=== PATIENT | female | born 1985 | race Caucasian/White ===

== ENCOUNTER 2016-05-16 17:23 | Emergency (ER) ==
[2016-05-16 17:58] LABS: URINE SOURCE CLEAN CATCH
--- NOTE | 2016-05-16 18:02 | PROVIDER DOCUMENTATION ---
HPI-Abdominal Pain/GI Problem - General Source: patient - History of Present Illness-ABD Nature of Presenting Problems: 30 y/o F presents to the ED with RUQ pain X 1 month. Pt says she ran out of her pain meds at lunch and called her Dr and was sent to the ED for evaluation. Pt states she has gallbladder problems and had a work up for it. Abdominal Pain Onset Location: reports: RUQ Pain Radiation: reports: no radiation Quality of Pain: reports: aching Severity in ED: reports: moderate Onset/Duration: reports: other (1 month) Timing: reports: still present, intermittent Modifying Factors: improves with: nothing <Naeem Boggs - Last Filed: 05/16/16 17:59> <Leslie Baird - Last Filed: 05/16/16 20:04> - General Chief Complaint: Abdominal Pain Stated Complaint: ABD PAIN Time Seen by Provider: 05/16/16 17:32 Allergies/Adverse Reactions: Patient Allergies Allergy/AdvReac Type Severity Reaction Status Date / Time promethazine HCl * Allergy HIVES Verified 05/16/16 17:29 [From Phenergan] Home Medications: Home Medication List Medication Instructions Recorded Confirmed Last Taken Type Acetaminophen/Diphenhydramine 1 each PO TID #20 tablet 05/16/16 Unknown Rx [Percogesic Extra Str Caplet] Ondansetron [Zofran] 4 mg PO Q6H PRN PRN #15 tablet 05/16/16 Unknown Rx Review of Systems - Adult - REVIEW OF SYSTEMS - ADULT Constitutional: denies: chills, fever Eyes: reports: no symptoms reported Ears, Nose, Mouth & Throat: reports: no symptoms reported Cardiovascular: reports: no symptoms reported Respiratory: reports: no symptoms reported Gastrointestinal: reports: abdominal pain. denies: constipation, diarrhea, nausea, vomiting Genitourinary: reports: no symptoms reported Musculoskeletal: reports: no symptoms reported Integumentary: reports: no symptoms reported Neurological: reports: no symptoms reported Psychiatric: reports: no symptoms reported Endocrine: reports: no symptoms reported Hematologic/Lymphatic: reports: no symptoms reported Allergic/Immunologic: reports: no symptoms reported All Other Systems: Reviewed and Negative <Naeem Boggs - Last Filed: 05/16/16 17:59> - REVIEW OF SYSTEMS - ADULT Constitutional: denies: see HPI, fever Gastrointestinal: reports: nausea <BrieLeslie Gloria - Last Filed: 05/16/16 20:04> Past History - Adult - PAST MEDICAL HISTORY-ADULT Review of Records: reports: Old Records Reviewed, Nursing Assessment Review, Medications Reviewed Major Childhood Illnesses: reports: denies history Cardiovascular: reports: denies history Respiratory: reports: denies history Gastrointestinal: reports: GERD Genitourinary: reports: denies history, chronic UTI's. denies: kidney stones Musculoskeletal: reports: chronic pain (back) Neurological: reports: denies history Psychiatric: reports: denies history Endocrine/Immune: reports: denies history Other Conditions: reports: denies history - PRIOR SURGERIES/PROCEDURES Surgical/Procedure History: reports: appendectomy, BTL, tonsillectomy - PRIOR HOSPITALIZATIONS Prior Hospitalizations: reports: none - IMMUNIZATION STATUS Childhood Immunizations: See Nurse Assessment Flu Vaccine: See Nurse Assessment - FAMILY HISTORY Family History: CAD over 55 yo (mother 58) <Naeem Boggs - Last Filed: 05/16/16 17:59> - PAST MEDICAL HISTORY-ADULT Review of Records: reports: Nursing Assessment Review, Medications Reviewed - IMMUNIZATION STATUS Childhood Immunizations: See Nurse Assessment Flu Vaccine: See Nurse Assessment - SOCIAL HISTORY Smoking: denies <Delano Bairdqueline Gloria - Last Filed: 05/16/16 20:04> Physical Exam-General - PHYSICAL EXAM-ADULT Initial Vital Signs Reviewed: Yes - CONSTITUTIONAL General Appearance: appears well, alert - EYES Eyes: PERRL/EOMI, pink conjunctivae - HEAD, EARS, NOSE, MOUTH & THROAT HENMT: normocephalic/atraumatic, moist mucous membranes, normal ENT inspection, TMs normal, pharynx normal, dental decay - NECK Neck: non-tender, full range of motion, supple - CARDIOVASCULAR Cardiovascular: normal peripheral pulses, regular rate, rhythm - GASTROINTESTINAL (ABDOMEN) Abdominal Exam: normal bowel sounds, tenderness (right upper quandrant). negative: guarding - MUSCULOSKELETAL Extremity: normal range of motion, normal capillary refill - SKIN Integumentary: normal color, normal turgor, warm/dry - PSYCHIATRIC Psych/Mental Status: normal mood/affect, oriented x 3 <Leslie Baird Gloria - Last Filed: 05/16/16 20:04> Progress - PLAN OF CARE/RESULTS Progress/Plan/Lab Results: Discussed care, diagnosis and need for follow-up, patient verbalized understanding Laboratory Tests 05/16/16 05/16/16 05/16/16 13:10 17:32 17:32 WBC RBC Hgb Hct MCV MCH MCHC RDW Std Deviation Plt Count MPV Immature Gran % (Auto) Neut % (Auto) Lymph % (Auto) [place] % (Auto) Eos % (Auto) Baso % (Auto) Immature Gran # (Auto) Neut # (Auto) Lymph # (Auto) [place] # (Auto) Eos # (Auto) Baso # (Auto) Sodium 131 L Potassium 4.3 Chloride 95 L Carbon Dioxide 24 L Anion Gap 12 BUN 15 Creatinine 0.7 Estimated GFR/1.73 m2 > 60 BUN/Creatinine Ratio 21 Glucose 103 Calculated Osmolality 264 Calcium 9.7 Total Bilirubin 0.20 AST 59 H ALT 74 H Alkaline Phosphatase 182 H Total Protein 7.4 Albumin 4.2 Globulin 3.0 Albumin/Globulin Ratio 1.0 Amylase Lipase Urine Source CLEAN CATCH Urine Color YELLOW Urine Clarity CLEAR Urine pH 7.0 Ur Specific [place] 1.005 Urine Protein NEGATIVE Urine Ketones NEGATIVE Urine Blood NEGATIVE Urine Nitrite NEGATIVE Urine Bilirubin NEGATIVE Urine Urobilinogen NORMAL Urine Microscopic RBC Not Reportable Urine WBC TRACE A Urine Microscopic WBC <10 Ur Epithelial Cells <10 Urine Glucose NEGATIVE Urine Test NEGATIVE 05/16/16 05/16/16 05/16/16 18:00 18:10 18:10 WBC 6.49 RBC 4.67 Hgb 13.0 Hct 38.0 MCV 81.4 MCH 27.8 MCHC 34.2 RDW Std Deviation 13.2 Plt Count 291 MPV 10.0 Immature Gran % (Auto) 0.2 Neut % (Auto) 59.0 Lymph % (Auto) 28.2 [place] % (Auto) 10.3 H Eos % (Auto) 1.8 Baso % (Auto) 0.5 Immature Gran # (Auto) 0.01 Neut # (Auto) 3.83 Lymph # (Auto) 1.83 [place] # (Auto) 0.67 H Eos # (Auto) 0.12 Baso # (Auto) 0.03 Sodium Potassium Chloride Carbon Dioxide Anion Gap BUN Creatinine Estimated GFR/1.73 m2 BUN/Creatinine Ratio Glucose Calculated Osmolality Calcium Total Bilirubin AST ALT Alkaline Phosphatase Total Protein Albumin Globulin Albumin/Globulin Ratio Amylase 37 Lipase 40 Urine Source Urine Color Urine Clarity Urine pH Ur Specific [place] Urine Protein Urine Ketones Urine Blood Urine Nitrite Urine Bilirubin Urine Urobilinogen Urine Microscopic RBC Urine WBC Urine Microscopic WBC Ur Epithelial Cells Urine Glucose Urine Test Orders Category Date Time Status CT ABD/PELVIS W/ IV CONT ONLY [CT] Stat Exams 05/16/16 17:54 Taken AMYLASE [CHEM] Stat Lab 05/16/16 18:00 Completed CBC WITH DIFF [HEME] Stat Lab 05/16/16 18:10 Completed CMP [COMPREHENSIVE METABOLIC PANEL] [CHEM] Stat Lab 05/16/16 13:10 Completed LIPASE [CHEM] Stat Lab 05/16/16 18:10 Completed TEST-URINE [PREG] Stat Lab 05/16/16 17:32 Completed UA [URINALYSIS PL] [URINALYSIS] Stat Lab 05/16/16 17:32 Completed URINE MICROSCOPIC [URINALYSIS] Stat Lab 05/16/16 17:32 Completed Last Vital Signs Temp 97.1 F L 05/16/16 17:27 Pulse 95 H 05/16/16 17:27 Resp 18 05/16/16 17:27 BP 119/72 05/16/16 17:27 Pulse Ox 99 05/16/16 17:27 Allergies promethazine HCl * [From Phenergan] Allergy (Verified 05/16/16 17:29) HIVES Orders 05/16/16 17:54 CT ABD/PELVIS W/ IV CONT ONLY [CT] Stat Lab Tests 05/16/16 05/16/16 05/16/16 13:10 17:32 17:32 WBC RBC Hgb Hct MCV MCH MCHC RDW Std Deviation Plt Count MPV Immature Gran % (Auto) Neut % (Auto) Lymph % (Auto) [place] % (Auto) Eos % (Auto) Baso % (Auto) Immature Gran # (Auto) Neut # (Auto) Lymph # (Auto) [place] # (Auto) Eos # (Auto) Baso # (Auto) Sodium 131 L Potassium 4.3 Chloride 95 L Carbon Dioxide 24 L Anion Gap 12 BUN 15 Creatinine 0.7 Estimated GFR/1.73 m2 > 60 BUN/Creatinine Ratio 21 Glucose 103 Calculated Osmolality 264 Calcium 9.7 Total Bilirubin 0.20 AST 59 H ALT 74 H Alkaline Phosphatase 182 H Total Protein 7.4 Albumin 4.2 Globulin 3.0 Albumin/Globulin Ratio 1.0 Amylase Lipase Urine Source CLEAN CATCH Urine Color YELLOW Urine Clarity CLEAR Urine pH 7.0 Ur Specific [place] 1.005 Urine Protein NEGATIVE Urine Ketones NEGATIVE Urine Blood NEGATIVE Urine Nitrite NEGATIVE Urine Bilirubin NEGATIVE Urine Urobilinogen NORMAL Urine Microscopic RBC Not Reportable Urine WBC TRACE A Urine Microscopic WBC <10 Ur Epithelial Cells <10 Urine Glucose NEGATIVE Urine Test NEGATIVE 05/16/16 05/16/16 05/16/16 18:00 18:10 18:10 WBC 6.49 RBC 4.67 Hgb 13.0 Hct 38.0 MCV 81.4 MCH 27.8 MCHC 34.2 RDW Std Deviation 13.2 Plt Count 291 MPV 10.0 Immature Gran % (Auto) 0.2 Neut % (Auto) 59.0 Lymph % (Auto) 28.2 [place] % (Auto) 10.3 H Eos % (Auto) 1.8 Baso % (Auto) 0.5 Immature Gran # (Auto) 0.01 Neut # (Auto) 3.83 Lymph # (Auto) 1.83 [place] # (Auto) 0.67 H Eos # (Auto) 0.12 Baso # (Auto) 0.03 Sodium Potassium Chloride Carbon Dioxide Anion Gap BUN Creatinine Estimated GFR/1.73 m2 BUN/Creatinine Ratio Glucose Calculated Osmolality Calcium Total Bilirubin AST ALT Alkaline Phosphatase Total Protein Albumin Globulin Albumin/Globulin Ratio Amylase 37 Lipase 40 Urine Source Urine Color Urine Clarity Urine pH Ur Specific [place] Urine Protein Urine Ketones Urine Blood Urine Nitrite Urine Bilirubin Urine Urobilinogen Urine Microscopic RBC Urine WBC Urine Microscopic WBC Ur Epithelial Cells Urine Glucose Urine Test Vital Signs - 24 hr 05/16/16 17:27 Temperature 97.1 F L Pulse Rate 95 H Respiratory 18 Rate Blood Pressure 119/72 O2 Sat by Pulse 99 Oximetry - CT/MRI 1 CT Study: Abdomen Impression: Abnormal CT Results: constipation, right ovarian cyst <Leslie Baird - Last Filed: 05/16/16 20:04> Departure <Naeem Boggs - Last Filed: 05/16/16 17:59> - Departure Time of Disposition Order: 19:55 Certified Medical Emergency: Emergent <Leslie Baird - Last Filed: 05/16/16 20:04> - Departure DIAGNOSIS: Right upper quadrant abdominal pain, Right ovarian cyst Constipation Qualifiers: Constipation type: unspecified constipation type Qualified Code(s): K59.00 - Constipation, unspecified Disposition: HOME 01 Condition: Stable Additional Instructions: ED Follow Up Instructions: You have been treated by a care provider in the Emergency Department. These instructions are being provided to you so you can have an understanding of how to care for yourself upon discharge. Upon discharge from the Emergency Department, you are responsible for making arrangements for follow-up care by a physician of your choice. Take all prescribed medications as directed. Return to the Emergency Department immediately for any new or worsening symptoms. You may call the Physician Referral phone number at [phone] to obtain a list of Physicians who are taking new patients. Prescriptions: Acetaminophen/Diphenhydramine [Percogesic Extra Str Caplet] 1 each PO TID #20 tablet Ondansetron [Zofran] 4 mg PO Q6H PRN PRN #15 tablet PRN Reason: Pain Referrals: Javed Jones MD [Primary Care Provider] - Attestation - Scribe Verification/Attestation Scribe:: Naeem Boggs Acting as Scribe for:: Leslie Baird Scribe documention review:: This chart was documented by a scribe and accurately reflects the service the provider performed and the decisions made by the provider. <Naeem Boggs - Last Filed: 05/16/16 17:59> Physician Attestation
[2016-05-16 18:19] LABS: MANUAL DIFF NEEDED? NO
[2016-05-16 18:19] LABS: BILIRUBIN URINE NEGATIVE (NEGATIVE); BLOOD URINE NEGATIVE (NEGATIVE); CLARITY CLEAR (CLEAR); COLOR YELLOW; GLUCOSE URINE NEGATIVE (NEGATIVE); LEUKOCYTES URINE TRACE (NEGATIVE); NITRITE URINE NEGATIVE (NEGATIVE); PROTEIN URINE NEGATIVE (NEGATIVE); SP GRAVITY URINE 1.005; URINE EPITHELIAL CELLS <10 /HPF (<10); URINE MICROSCOPIC NEEDED? YES; URINE WBC <10 /HPF (<10); UROBILINOGEN URINE NORMAL
[2016-05-16 18:26] LABS: BASO% 0.5 % (0.0-0.8); EOS# 0.12 X1000 (0.0-0.7); EOS% 1.8 % (0.0-10.0); IMM GRAN# 0.01 X1000 (0.0-0.04); IMM GRAN% 0.2 % (0.0-0.5); LYMPH# 1.83 X1000 (1.2-3.4); LYMPH% 28.2 % (20.5-51.1); MCH 27.8 PG (27-31); MCHC 34.2 g/dL (33-37); MCV 81.4 FL (81-99); MONO# 0.67 X1000 (0.11-0.59); MONO% 10.3 % (1.7-9.3); PLT 291 X1000 (130-400); RBC 4.67 XMIL (4.2-5.4)
[2016-05-16 18:50] LABS: AGAP 12; ALBUMIN 4.2 g/dL (3.5-5.0); ALKALINE PHOSPHATASE 182 U/L (32-104); BUN 15 mg/dL (8-22); CALCIUM 9.7 mg/dL (8.8-10.2); CHLORIDE 95 mmol/L (98-107); COSMO 264; GOT 59 U/L (10-30); GPT 74 U/L (10-36); POTASSIUM 4.3 mmol/L (3.5-5.1); SODIUM 131 mmol/L (136-145); TCO2 24 mmol/L (25-35); TOTAL PROTEIN 7.4 g/dL (6.3-8.3)
[2016-05-16] MEDS ORDERED: TORADOL IV STA (20:07)
--- NOTE | 2016-05-16 20:07 | Diag Imaging Result Document ---
PROCEDURE NAME: CT ABD/PELVIS W/ IV CONT ONLY - 05/16/2016 CT ABDOMEN AND PELVIS WITH INTRAVENOUS CONTRAST: COMPARISON: Ultrasound, 05/14/2016. FINDINGS: The lung bases are clear and the heart size is normal. The gallbladder is collapsed. The liver, pancreas, spleen, adrenals, and kidneys are normal. There has been apparent appendectomy. There is significant constipation of the right colon. Otherwise, no bowel obstruction or inflammation. The urinary bladder, uterus and rectum are normal. There is a small right ovarian cyst measuring about 2 cm, and there is an apparent corpus luteum in the left ovary. Bony structures are intact. IMPRESSION: 1. Constipation. 2. Small right ovarian cyst of 2 cm.
[2016-05-16 20:18] VITALS: BP 126/93
== END 2016-05-16 20:28 | disposition home or self-care (01) ==
LOC: P.ED 17:23
DX: N83.201 Unspecified ovarian cyst, right side (principal); K59.00 Constipation, unspecified; R10.11 Right upper quadrant pain; R11.0 Nausea; R10.811 Right upper quadrant abdominal tenderness; K02.9 Dental caries, unspecified; G89.29 Other chronic pain; M54.9 Dorsalgia, unspecified; Z87.440 Personal history of urinary (tract) infections; Z82.49 Family history of ischemic heart disease and other diseases of the circulatory system
CPT/HCPCS: 74177; 80053; 81001; 81025; 82150; 83690; 85025; 96374; J1885; Q9967